=== PATIENT | female | born 1940 | race Caucasian/White ===

== ENCOUNTER 2025-02-25 12:31 | Emergency (ER) | payer MEDICARE ==
[~2025-02-25] VITALS: Wt 70.8 kg
[2025-02-25] MEDS ORDERED: METHOCARBAMOL750 M1 PO (12:49)
[2025-02-25] MEDS ORDERED: GOOD SENSE ASP325 MG PO (12:50)
[2025-02-25] MEDS ORDERED: METFORMIN HYDR500 MG PO (12:50)
[2025-02-25] MEDS ORDERED: Oscal,Oyster S500 MG PO (12:50)
[2025-02-25] MEDS ORDERED: VITAMIN B121000 MC3 PO (12:51)
[2025-02-25] MEDS ORDERED: PANTOPRAZOLE SO40 MG PO (12:51)
[2025-02-25] MEDS ORDERED: OXYCODONE HCL5 MG PO (12:51)
[2025-02-25] MEDS ORDERED: METHOTREXATE2.5 MG PO (12:52)
[2025-02-25] MEDS ORDERED: AMLODIPINE BESYL5 MG PO (12:52)
[2025-02-25] MEDS ORDERED: METOPROLOL SUCC50 M1 PO (12:52)
[2025-02-25] MEDS ORDERED: MEDI-MECLIZINE25 MG PO (12:53)
[2025-02-25 13:34] LABS: BASO # 0.1 10*3/uL (0.0-0.1); BASO % 0.2 % (0.0-1.0); EOS # 0.0 10*3/uL (0.0-0.4); EOS % 0.1 % (1.0-4.0); MEAN CELL VOLUME 93.7 fl (81.0-99.0); MEAN CORPUSCULAR HGB 28.8 pg (27.0-31.0); MEAN PLATELET VOLUME 10.3 fl (9.6-12.3); MONO # 0.9 10*3/uL (0.1-1.0); MONO % 4.7 % (3.0-9.0); NEUT # 18.1 10*3/uL (2.3-7.9); NEUT % 89.9 % (47.0-73.0); NUCLEATED RED BLOOD CELL 0.0 % (0.0-0.0); NUCLEATED RED BLOOD CELL 0.0 10*3/uL (0.0-0.0); PLATELET COUNT AUTOMATED 378 10*3/uL (130-400); RED CELL DISTRI WIDTH 15.8 % (0-14.5)
[2025-02-25 13:42] LABS: BILIRUBIN Negative (Negative); BLOOD Trace-Intact (Negative); CLARITY Clear (Clear); COLOR Yellow (Yellow); KETONE Negative (Negative); LEUKO ESTERASE 1+ (Negative); NITRITE Negative (Negative); PH 6.5 (4.5-8.0); SPECIFIC GRAVITY 1.020 (1.001-1.030); UROBILINOGEN 1.0 E.U./dl (0.0-1.0)
[2025-02-25 13:53] LABS: BACTERIA 2+; MUCOUS TRACE
[2025-02-25 13:53] LABS: BUN 10 mg/dl (9-23)
[2025-02-25 13:54] LABS: YEAST TRACE
[2025-02-25] MEDS ORDERED: Acetaminophen/Hydrocodone 5 MG/325 MG TABLET PO ONE (14:10)
[2025-02-25] MEDS ORDERED: SODIUM CHLORIDE 0.9% 100 ML BAG IV ONE (14:45)
[2025-02-25] MEDS ORDERED: IOHEXOL 350 MG/ML 100 ML VIAL IV ONE ×2 (14:45→15:06)
[2025-02-25] MEDS ORDERED: SODIUM CHLORIDE 0.9% 100 ML IV ONE (15:06)
[2025-02-25] MEDS ORDERED: HEPARIN SODIUM 250 ML IV SCH (17:55)
== END 2025-02-25 20:17 | disposition short-term general hospital (02) ==
LOC: ED 12:31
PROVIDERS: Emergency Medicine
DX: I26.99 Other pulmonary embolism without acute cor pulmonale (principal); D64.9 Anemia, unspecified; R79.89 Other specified abnormal findings of blood chemistry; G89.18 Other acute postprocedural pain; M25.552 Pain in left hip; Z96.651 Presence of right artificial knee joint; Z91.018 Allergy to other foods; Z91.010 Allergy to peanuts; Z79.899 Other long term (current) drug therapy; Z79.82 Long term (current) use of aspirin